=== PATIENT | male | born 1990 | race Hispanic/Latino ===

== ENCOUNTER 2019-10-03 17:13 | Emergency (ER) | payer OTHER | END 2019-10-03 17:50 | disposition home or self-care (01) | LOC: EDH 17:13 | DX: Z02.89 Encounter for other administrative examinations (principal); J45.909 Unspecified asthma, uncomplicated; F31.9 Bipolar disorder, unspecified; F20.9 Schizophrenia, unspecified; Z72.0 Tobacco use ==

== ENCOUNTER 2020-10-19 12:19 | Emergency (ER) | payer OTHER ==
[~2020-10-19] VITALS: Ht 175.3 cm; Wt 95.3 kg
[2020-10-19 12:20] VITALS: BP 136/91
== END 2020-10-19 14:59 | disposition left against medical advice (07) ==
LOC: EDH 12:19
DX: T63.441A Toxic effect of venom of bees, accidental (unintentional), initial encounter (principal); Y92.89 Other specified places as the place of occurrence of the external cause; Z53.21 Procedure and treatment not carried out due to patient leaving prior to being seen by health care provider